=== PATIENT | female | born 1950 | race Caucasian/White ===

== ENCOUNTER 2022-08-04 13:35 | Outpatient (CLI) | payer MEDICARE, OTHER, SELFPAY ==
--- NOTE | 2022-08-04 13:45 | MR_ITS ---
[address] [address] Phone:?[phone] Fax:?[phone] Referring Physician Information: Siva Jackson M.D. [address] [place] [id number] Phone:?[phone] Fax:?[phone] Patient:Jericho Rodriguez D.O.B:?1950 Sex:?Female Phone:?[phone] [facility] MRN:?[id number] Exam Date:?08/04/2022 ? EXAM: MRI of the LEFT KNEE, without contrast CLINICAL HISTORY: Left knee pain. Evaluate for lateral meniscal tear. COMPARISONS: Plain radiographs 07/22/2022. TECHNICAL: MR sequences of the left knee: sagittals: PD, PDFS coronals: PD, STIR axials: PD, T2 FS CONTRAST: None SEDATION: None FINDINGS: Bones: No fracture, bone marrow contusion, or other suspicious bone marrow signal abnormality. 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 There is a 1.5 x 1.5 cm area of grade II to III chondromalacia over the trochlear groove and medial femoral trochlea. Retinacula: The medial and lateral retinacula are intact. Fat pads: The infrapatellar, quadriceps, and prefemoral fat pads are unremarkable. Knee joint: Effusion: Moderate left knee joint effusion. Popliteal cyst: None. Intra-articular bodies: None. Posteromedial corner: The semimembranosus and pes anserine tendons are intact. Medial compartment: Medial meniscus: There is an approximately 5 mm in length ill-defined free edge and superiorly surfacing tear of the posterior horn of the medial meniscus best seen on sagittal images 12 and 13. There is 3 mm of medial meniscal extrusion best seen on coronal series 8 image 18. Cartilage: Intact. Lateral compartment: Lateral meniscus: There is ill-defined free edge surfacing tearing from the anterior horn/body junction through the posterior horn/posterior root junction of the lateral meniscus best seen on coronal images 16 through 20 and sagittal images 24 through 18. Cartilage: There is extensive grade II chondromalacia over the central, posterior, and medial portions of the lateral tibial plateau. Ligaments: Anterior cruciate ligament: Intact. Posterior cruciate ligament: Intact. Medial collateral ligament: Intact. Posterior oblique ligament: Intact. Fibular collateral ligament: Intact. Posterolateral corner: The distal biceps femoris tendon, iliotibial band, popliteus tendon, popliteus muscle, popliteofibular ligament, and arcuate ligament are intact. Extensor mechanism: Patellar tendon: Intact. Quadriceps tendon: Intact. IMPRESSION: 1. Ill-defined free edge surfacing tearing from the anterior horn/body junction through posterior horn/posterior root junction of the lateral meniscus. 2. Approximately 5 mm in length ill-defined free edge and superiorly surfacing tear of the posterior horn of the medial meniscus. 3 mm of medial meniscal extrusion. 3. 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 4. 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 5. Moderate left knee joint effusion. 6. No ligamentous injury of the left knee. RCB Electronically signed on 08/05/2022 6:50:00 AM by James Doshi M.D.
== END 2022-08-04 13:36 | disposition home or self-care (01) ==
LOC: MRI 13:36
PROVIDERS: PCP Family Medicine; Visit Provider Orthopaedic Surgery
DX: M25.562 Pain in left knee (principal); S83.282A Other tear of lateral meniscus, current injury, left knee, initial encounter; M22.42 Chondromalacia patellae, left knee; M25.462 Effusion, left knee
CPT/HCPCS: 73721